=== PATIENT | male | born 1990 | race Caucasian/White ===

== ENCOUNTER 2017-05-09 21:42 | Emergency (ER) | payer OTHER ==
[2017-05-09 21:59] VITALS: BP 124/81; PULSE 88; RESP 16; TEMP 99.2; O2SAT 98
--- NOTE | 2017-05-09 23:04 | C.PDOC ---
History Of Present Illness 26 year old male who presents to the ER with a complaint right knee pain after he missed a step while getting off of a truck and twisted his right knee a week ago. Patient has been taking motrin intermittently with no relief. Patient is also complaining of of a chronic right ear infection; he went to see Dr. Pena who gave him an Rx for ear drops, however, he states it has not relieved his symptoms. Denies weakness or numbness. Time Seen by Provider: 05/09/17 22:18 Chief Complaint (Nursing): Lower Extremity Problem/Injury History Per: Patient History/Exam Limitations: no limitations Onset/Duration Of Symptoms: Days Current Symptoms Are (Timing): Still Present Recent travel outside of the [place]: No - Knee Description Of Injury: Twisted Past Medical History Reviewed: Historical Data, Nursing Documentation, Vital Signs Vital Signs: Last Vital Signs Temp 99.2 F 05/09/17 21:54 Pulse 88 05/09/17 21:54 Resp 16 05/09/17 21:54 BP 124/81 05/09/17 21:54 Pulse Ox 98 05/10/17 01:41 - Medical History PMH: No Chronic Diseases Surgical History: No Surg Hx Family History: States: Unknown Family Hx - Social History Hx Alcohol Use: Yes Hx Substance Use: No - Immunization History Hx Tetanus Toxoid Vaccination: Yes Hx Influenza Vaccination: No Hx Pneumococcal Vaccination: No Review Of Systems ENT: Positive for: Ear Pain Musculoskeletal: Positive for: Leg Pain Neurological: Negative for: Weakness, Numbness Physical Exam - Physical Exam Appears: Non-toxic Skin: Normal Color, Warm, Dry Head: Atraumatic, Normacephalic Eye(s): bilateral: Normal Inspection, PERRL Ear(s): Left: Normal, Right: Other (No tragal tenderness, whitish exudate, minimal erythema, no bulging TM) Oral Mucosa: Moist Neck: Normal, Supple Extremity: Tenderness (Right knee), No Calf Tenderness, No Deformity, Swelling ( Right knee), No Other (Right knee effusion, or erythema) Extremity: Left: Atraumatic, Bilateral: Atraumatic, Normal Color And Temperature Pulses: Left Dorsalis Pedis: Normal, Right Dorsalis Pedis: Normal Neurological/Psych: Oriented x3, Normal Speech, Normal Cognition ED Course And Treatment O2 Sat by Pulse Oximetry: 98 (Room air) Pulse Ox Interpretation: Normal - Other Rad Right knee x-ray X-Ray: Viewed By Me, Read By Radiologist Interpretation: No acute fractures or dislocations. Progress Note: Motrin administered. Right knee X-ray ordered. Patient is resting comfortably, and is in no acute distress. Patient was instructed to follow up with PMD or ortho in 1-2 days for further evaluation. Disposition Counseled Patient/Family Regarding: Studies Performed, Diagnosis, Need For Followup, Rx Given - Disposition Referrals: [facility] at [facility] [Outside] Disposition: HOME/ ROUTINE Disposition Time: 23:01 Condition: GOOD Additional Instructions: Please follow up with PMD ffor orthopedist referral as needed Use knee brace for support Follow up with ENT Take meds as directed Return to ER if worse Prescriptions: Ibuprofen [Motrin Tab] 800 mg PO QID #24 tab Instructions: Knee Sprain (ED) - Clinical Impression Clinical Impression: Right knee sprain, Chronic otitis externa - Scribe Statement The provider has reviewed the documentation as recorded by the Scribsarah Salcido All medical record entries made by the Scribe were at my direction and personally dictated by me. I have reviewed the chart and agree that the record accurately reflects my personal performance of the history, physical exam, medical decision making, and the department course for this patient. I have also personally directed, reviewed, and agree with the discharge instructions and disposition.
--- NOTE | 2017-05-10 08:25 | RAD ---
PROCEDURE: Right Knee Radiographs. HISTORY: pain, fell from truck COMPARISON: None. FINDINGS: BONES: . No fracture. JOINTS: Normal. No osteoarthritis. JOINT EFFUSION: None. OTHER FINDINGS: None. IMPRESSION: Normal radiographs of the right knee.
== END 2017-05-09 23:08 | disposition home or self-care (01) ==
LOC: C.ER 21:42
DX: S83.91XA Sprain of unspecified site of right knee, initial encounter (principal); X50.1XXA Overexertion from prolonged static or awkward postures, initial encounter; Y92.89 Other specified places as the place of occurrence of the external cause; H60.61 Unspecified chronic otitis externa, right ear

== ENCOUNTER 2018-03-19 20:20 | Emergency (ER) | payer OTHER ==
[2018-03-19 20:43] VITALS: BP 133/79; PULSE 65; TEMP 99.4; O2SAT 98
[2018-03-19] MEDS ORDERED: Sodium Chloride 0.9% 500 ML IV ONE (20:57)
--- NOTE | 2018-03-19 21:07 | C.PDOC ---
History Of Present Illness 27 year old male with no prior medical Hx presents to the ER with a complaint of rectal bleeding that occurred today. Patient reports he had one episode of bright red blood per rectum today. He notes having a similar episode a few months ago that resolved on it's own. Denies fever or abdominal pain. Time Seen by Provider: 03/19/18 20:49 Chief Complaint (Nursing): GI Problem History Per: Patient History/Exam Limitations: no limitations Onset/Duration Of Symptoms: Hrs Current Symptoms Are (Timing): Still Present Number Of Bleeding Episodes: One Quality Of Discomfort: Unable To Describe Associated Symptoms: denies: Nausea, Vomiting, Diarrhea, Other (Fever, abdominal pain) Modifying Factors: None Recent travel outside of the [place]: No Past Medical History Reviewed: Historical Data, Nursing Documentation, Vital Signs Vital Signs: Last Vital Signs Temp 99.4 F 03/19/18 20:40 Pulse 65 03/19/18 20:40 Resp 20 03/19/18 20:40 BP 133/79 03/19/18 20:40 Pulse Ox 98 03/19/18 21:59 Family History: States: Unknown Family Hx - Social History Hx Alcohol Use: Yes Hx Substance Use: No - Immunization History Hx Tetanus Toxoid Vaccination: Yes Hx Influenza Vaccination: No Hx Pneumococcal Vaccination: No Review Of Systems Constitutional: Negative for: Fever Cardiovascular: Negative for: Chest Pain, Palpitations, Light Headedness Respiratory: Negative for: Cough, Shortness of Breath Gastrointestinal: Positive for: Other (Rectal bleeding). Negative for: Abdominal Pain Physical Exam - Physical Exam Appears: Non-toxic Skin: Normal Color, Warm, Dry Head: Atraumatic, Normacephalic Eye(s): bilateral: Normal Inspection Oral Mucosa: Moist Chest: Symmetrical, No Tenderness Cardiovascular: Rhythm Regular Respiratory: Normal Breath Sounds, No Rales, No Rhonchi, No Wheezing Gastrointestinal/Abdominal: Soft, No Tenderness, No Distention Rectal: Other (Brown stools) Neurological/Psych: Oriented x3, Normal Speech ED Course And Treatment - Laboratory Results Result Diagrams: 03/19/18 21:14 03/19/18 21:14 O2 Sat by Pulse Oximetry: 98 (Room air) Pulse Ox Interpretation: Normal Medical Decision Making Medical Decision Making: rectal bleedign - consider anal fissure (no visible on exam), hemorrhoid- labs iamging pendign Plan: * Blood work * Urinalysis * Occult blood stool * IV fluids abd soft not ttp. guiac neg. brown stool. minimally elevated lipase (<3x upper normal), no epigastirc pain, pt tolerating po. asking for dc. advised to follow up outpt and strict return prcautions advsied. Disposition - Disposition Referrals: Narda Mcrae [Staff Provider] - [facility] [Outside] [facility] [Outside] Disposition: HOME/ ROUTINE Disposition Time: 21:59 Condition: STABLE Additional Instructions: please follow up with your doctor/clinic and specialist. please discuss your lipase level with your doctor/clinic. return to er with worsening symptoms or concerns. Instructions: Pancreatitis (DC), Bloody Stools Forms: [employer] ([place]an) Print Language: BELARUSIAN - Clinical Impression Clinical Impression: Rectal bleeding, Elevated lipase - Scribe Statement The provider has reviewed the documentation as recorded by the Scribe Jeff Salcido All medical record entries made by the Scribe were at my direction and personally dictated by me. I have reviewed the chart and agree that the record accurately reflects my personal performance of the history, physical exam, medical decision making, and the department course for this patient. I have also personally directed, reviewed, and agree with the discharge instructions and disposition.
[2018-03-19 21:19] LABS: BASO # 0.1 K/uL (0.0-0.2); BASO % 0.7 % (0.0-2.0); EOS # 0.1 K/uL (0.0-0.7); EOS % 1.7 % (0.0-4.0); HEMOGLOBIN 14.8 g/dL (12.0-18.0); LYMPH # 3.2 K/uL (1.0-4.3); LYMPH % 36.4 % (20.0-40.0); MEAN CELL VOLUME 86.7 fL (80.0-94.0); MEAN CORPUSCULAR HEMOGLOBIN 29.9 pg (27.0-31.0); MEAN CORPUSCULAR HGB CONC 34.5 g/dL (33.0-37.0); MEAN PLATELET VOLUME 7.2 fL (7.2-11.7); MONO # 0.7 K/uL (0.0-0.8); MONO % 8.4 % (0.0-10.0); NEUT # 4.7 K/uL (1.8-7.0); NEUT % 52.8 % (50.0-75.0); NRBC % 0.1 % (0.0-2.0); RBC 4.95 Mil/uL (4.40-5.90); RED CELL DISTRIBUTION WIDTH 13.4 % (11.5-14.5); WHITE BLOOD COUNT 8.8 K/uL (4.8-10.8)
[2018-03-19 21:23] LABS: URINE BILIRUBIN NEGATIVE (NEGATIVE); URINE BLOOD NEGATIVE (NEGATIVE); URINE CLARITY Clear (Clear); URINE COLOR Yellow (YELLOW); URINE GLUCOSE (UA) NORMAL (Normal); URINE LEUKOCYTE ESTERASE NEG Leu/uL (Negative); URINE PROTEIN NEGATIVE (NEGATIVE); URINE UROBILINOGEN NORMAL mg/dL (0.2-1.0)
[2018-03-19 21:40] LABS: INR 1.1; PROTHROMBIN TIME 11.6 SECONDS (9.7-12.2)
[2018-03-19 21:47] LABS: ALB/GLOB RATIO 1.2 (1.0-2.1); BLOOD UREA NITROGEN 13 mg/dL (9-20); GFR AFRICAN-AMERICAN > 60; GFR NON-AFRICAN AMERICAN > 60
[2018-03-19 21:48] LABS: ALT/SGPT 51 U/L (21-72); AST/SGOT 40 U/L (17-59); CALCIUM 9.3 mg/dl (8.6-10.4); LIPASE 505 U/L (23-300)
[2018-03-19 22:20] VITALS: RESP 18
== END 2018-03-19 22:15 | disposition home or self-care (01) ==
LOC: C.ER 20:20
DX: K62.5 Hemorrhage of anus and rectum (principal); R74.8 Abnormal levels of other serum enzymes
CPT/HCPCS: 80053; 81001; 83690; 85025; 85610; 85730; 99284; G0328